=== PATIENT | female | born 1955 | race African-American/Black ===

== ENCOUNTER 2016-11-25 09:46 | Outpatient (CLI) | payer OTHER ==
[2016-11-25 11:00] LABS: ALT (SGPT) 9 U/L (0-55); AST (SGOT) 11 U/L (5-34); Alkaline Phosphatase 113 U/L (40-150); Anion Gap 16 mmol/L (10-20); BUN (Urea Nitrogen) 11 mg/dL (9.8-20.1); Bilirubin, Total 0.5 mg/dL (0.2-1.2); Calc. Creatinine Clearance 0 mL/min (70-130); Calcium 8.9 mg/dL (7.8-10.44); Carbon Dioxide 30 mmol/L (23-31); Chloride 103 mmol/L (98-107); Estimated GFR-MDRD 79; Globulin 3.3 g/dL (2.4-3.5); LDL Cholesterol, Calculated 101 mg/dL; Protein, Total 7.2 g/dL (5.8-8.1)
== END 2016-11-25 09:47 | disposition home or self-care (01) ==
LOC: HPCALD 09:46
PROVIDERS: ATTEND Family Medicine
DX: E78.5 Hyperlipidemia, unspecified (principal); E89.0 Postprocedural hypothyroidism
CPT/HCPCS: 36415; 80053; 80061; 84443

== ENCOUNTER 2016-11-27 13:13 | Outpatient (CLI) | payer OTHER | END 2016-11-27 13:14 | LOC: HPCALD 13:13 | PROVIDERS: ATTEND Family Medicine | DX: Z12.4 Encounter for screening for malignant neoplasm of cervix (principal) ==

== ENCOUNTER 2017-06-30 16:29 | Emergency (ER) | payer OTHER ==
[2017-06-30] MEDS ORDERED: HYDROcodone/Acetaminophen 10/325 mg Tablet ONE (16:49)
[2017-06-30] MEDS ORDERED: AMOXicillin 250 MG CAP ONE (16:49)
[2017-06-30] MEDS ORDERED: Ibuprofen 800 MG TAB ONE (16:49)
== END 2017-06-30 16:48 | disposition home or self-care (01) ==
LOC: BURERS 16:29
DX: K04.7 Periapical abscess without sinus (principal); I10 Essential (primary) hypertension; E03.9 Hypothyroidism, unspecified; E78.5 Hyperlipidemia, unspecified; F17.210 Nicotine dependence, cigarettes, uncomplicated; Z86.73 Personal history of transient ischemic attack (TIA), and cerebral infarction without residual deficits
CPT/HCPCS: 99282

== ENCOUNTER 2017-07-15 16:32 | Outpatient (CLI) | payer OTHER | END 2017-07-15 16:33 | disposition home or self-care (01) | LOC: HPCALD 16:32 | PROVIDERS: ATTEND Family Medicine | DX: E89.0 Postprocedural hypothyroidism (principal) | CPT/HCPCS: 36415; 84443 ==

== ENCOUNTER 2019-08-19 17:36 | Emergency (ER) | payer OTHER ==
[2019-08-19] MEDS ORDERED: methylPREDNISolone Sod Succ/PF 125 MG/2 ML VIAL ONE (17:58)
[2019-08-19 18:38] LABS: ALT (SGPT) 29 U/L (8-55); AST (SGOT) 20 U/L (5-34); Albumin 3.8 g/dL (3.4-4.8); Alkaline Phosphatase 108 U/L (40-110); Anion Gap 15 mmol/L (10-20); BUN (Urea Nitrogen) 14 mg/dL (9.8-20.1); Base Excess-Venous 4.1 mmol/L (-2.0 to 3.0); Bilirubin, Total 0.6 mg/dL (0.2-1.2); CO2 Tension (PvCO2) 52.9 mmHg (40.0-50.0); Calc. Creatinine Clearance 0 mL/min (70-130); Calcium 9.4 mg/dL (7.8-10.44); Calcium, Ionized 1.15 mmol/L (See Comments:); Carbon Dioxide 30 mmol/L (23-31); Chloride 104 mmol/L (98-107); Estimated GFR-MDRD 70; Globulin 3.5 g/dL (2.4-3.5); Glucose 143 mg/dL (80-115); Hemoglobin - Calc 15.5 g/dL (12.0-16.0); Potassium 3.9 mmol/L (3.5-5.1); Protein, Total 7.3 g/dL (6.0-8.3); Sodium 144 mmol/L (138-145); Sodium 145 mmol/L (136-145); T. Carbon Dioxide 32.5 mmol/L (22.0-28.0); vO2 Saturation-calc 91.1 % (60.0-85.0)
[2019-08-19 18:39] LABS: #Basophils 0.1 thou/uL (0.0-0.2); #Monocytes 0.5 thou/uL (0.11-0.59); #Neutrophils 6.5 thou/uL (1.40-6.50); %Basophils 0.7 % (0.0-1.0); %Eosinophils 0.1 % (0.0-10.0); %Lymphocytes 12.6 % (21.0-51.0); %Monocytes 5.6 % (0.0-10.0); Hemoglobin 13.4 g/dL (12.0-16.0); MDiff Complete? YES; Mean Corpuscular HGB CONC 29.9 g/dL (32.0-36.0); Mean Corpuscular Hemoglobin 27.3 pg (27.0-31.0); Mean Corpuscular Volume 91.1 fL (78.0-98.0); Mean Platelet Volume 6.2 fL (7.4-10.4); Microcytosis SLIGHT = 6-15 cells (100X) (0-5/hpf); Platelet Count 241 thou/uL (130-400); RBC Distribution Width 14.8 % (11.5-14.5); Red Blood Cell (RBC) Count 4.91 mill/uL (4.20-5.40); White Blood Cell (WBC) Count 8.1 thou/uL (4.8-10.8)
[2019-08-19 18:41] LABS: Bicarbonate (HCO3v) 30.8 mmol/L (22.0-28.0)
[2019-08-19 18:49] LABS: CKMB 4.2 ng/mL (0-6.6)
[2019-08-19] MEDS ORDERED: Azithromycin 250 MG TAB ONE (20:07)
[2019-08-19] MEDS ORDERED: Aspirin Chewable 81 MG TAB ONE (20:07)
--- NOTE | 2019-08-19 21:03 | RAD ---
PORTABLE CHEST: 08/19/19 Comparison is made with the prior study of 03/30/18. Vascular congestion is not present today as it was before. The central pulmonary arteries are very pr ominent in size as usual. There is no focal infiltrate or large effusion apparent. The left base is n ot seen as well as the other areas of the lungs. The trachea is midline. The main pulmonary artery se gment is quite prominent, but this is usual for this patient. IMPRESSION: Chronic changes but no acute finding. POS: HOME
== END 2019-08-19 20:35 | disposition short-term general hospital (02) ==
LOC: BURERS 17:36
DX: J44.9 Chronic obstructive pulmonary disease, unspecified (principal); I24.8 Other forms of acute ischemic heart disease; E03.9 Hypothyroidism, unspecified; E78.5 Hyperlipidemia, unspecified; I10 Essential (primary) hypertension; Z86.73 Personal history of transient ischemic attack (TIA), and cerebral infarction without residual deficits; F17.210 Nicotine dependence, cigarettes, uncomplicated
CPT/HCPCS: 71045; 80053; 82330; 82435; 82553; 82803; 83880; 84132; 84295; 84484; 85014; 85025; 93005; 96365; 96375; J2930; J7620